=== PATIENT | male | born 1965 | race Caucasian/White ===

== ENCOUNTER 2018-12-28 20:25 | Emergency (ER) | payer SELFPAY ==
[2018-12-28] MEDS ORDERED: Fluorescein Opthalmic Strip ONE ×2 (20:41→20:44)
[2018-12-28] MEDS ORDERED: Proparacaine 0.5% Opth 15 ML BOT ONE (20:43)
[2018-12-28] MEDS ORDERED: Erythromycin Base 0.5% Oint 1 GM TUBE ONE (21:02)
[2018-12-28] MEDS ORDERED: Adacel (T-DAP) 0.5 ML SYRINGE ONE (21:02)
== END 2018-12-28 21:37 | disposition home or self-care (01) ==
LOC: SCSER 20:25
DX: S05.02XA Injury of conjunctiva and corneal abrasion without foreign body, left eye, initial encounter (principal); H11.32 Conjunctival hemorrhage, left eye; W22.8XXA Striking against or struck by other objects, initial encounter
CPT/HCPCS: 90471; 90715

== ENCOUNTER 2020-06-23 13:10 | Outpatient (CLI) | payer OTHER ==
--- NOTE | 2020-06-23 14:08 | RAD ---
EXAM: Chest 2 views: HISTORY: Dyspnea on insertion COMPARISON: None. FINDINGS: There is a normal-sized cardiomediastinal silhouette. There is no evidence of consolidation, mass, or pleural effusion. No acute osseous abnormality. IMPRESSION: No evidence of acute cardiopulmonary disease
== END 2020-06-23 13:11 | disposition home or self-care (01) ==
LOC: SCSRAD 13:10
PROVIDERS: ATTEND Registered Nurse Community Health
DX: R06.00 Dyspnea, unspecified (principal)
CPT/HCPCS: 71046